=== PATIENT | female | born 1975 | race American Indian/Alaskan Native ===

== ENCOUNTER 2020-05-05 11:38 | Emergency (ER) | payer BC ==
--- NOTE | 2020-05-05 13:30 | XRay Report ---
CHEST 2 VIEWS INDICATION / CLINICAL INFORMATION: Cough, SOB. COMPARISON: Chest x-ray on 04/29/2020 FINDINGS: SUPPORT DEVICES: None. HEART / MEDIASTINUM: No significant abnormality. LUNGS / PLEURA: No significant pulmonary or pleural abnormality. No pneumothorax. ADDITIONAL FINDINGS: No significant additional findings. IMPRESSION: 1. No acute findings. Signer Name: Max Bueno MD Signed: 05/05/2020 1:26 PM Workstation Name: [id number]
--- NOTE | 2020-05-05 14:27 | Emergency Department Report ---
ED General Adult HPI - General Chief complaint: Upper Respiratory Infection Stated complaint: COUGH Time Seen by Provider: 05/05/20 12:57 Source: patient Mode of arrival: Ambulatory Limitations: No Limitations - History of Present Illness Initial comments: 44-year-old -[place] female patient presents with complaints of worsening cough and shortness of breath x 1 week. Patient was seen here with the same complaints 04/29/2020. At that time, patient was treated for bronchitis with prednisone, Z-Autumn, and an albuterol inhaler. Patient states compliant with medications, however states her symptoms have worsened despite these. She reports chest pain only with cough and states she is coughing up a yellow mucus. She denies any hemoptysis, leg pain/swelling, history of DVT/PE, hormone use, recent long travel/surgeries, or history of cancer. Patient reports at the start of her symptoms, she was tested for COVID and was negative. 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 She denies any prior medical history and states she is an occasional smoker. Patient also denies any fever/chills/sweats or body aches. - Related Data Previous Rx's Medication Instructions Recorded Last Taken Type Albuterol Sulfate [Proventil Hfa] 6.7 gm IH Q4HR #1 hfa.aer.ad 04/29/20 Unknown Rx Azithromycin [Zithromax Z-AUTUMN] 250 mg PO ONCE #1 pack 04/29/20 Unknown Rx Prednisone [predniSONE 5 mg (6-Day 5 mg PO .TAPER #1 tab.ds.pk 04/29/20 Unknown Rx Pack, 21 Tabs)] Benzonatate 200 mg PO TID PRN #30 capsule 05/05/20 Unknown Rx Guaifenesin/Pseudoephedrne HCl 1 tab PO BID 7 Days #14 tab 05/05/20 Unknown Rx [Mucinex D ER 1,200-120 mg Tab] Levocetirizine Dihydrochloride 5 mg PO QHS 7 Days #7 tablet 05/05/20 Unknown Rx [Xyzal] Promethazine/Phenyleph/Codeine 118 ml PO QID PRN #1 bottle 05/05/20 Unknown Rx [Noaxrbbmaojc-UC-Wcpsvdn Syrup] Allergies Allergy/AdvReac Type Severity Reaction Status Date / Time No Known Allergies Allergy Unverified 05/05/20 11:54 ED Review of Systems ROS: Stated complaint: COUGH Other details as noted in HPI Constitutional: denies: chills, diaphoresis, fever, malaise, weakness Eyes: denies: vision change ENT: denies: throat pain Respiratory: cough, orthopnea, shortness of breath. denies: SOB with exertion Cardiovascular: denies: chest pain, edema, syncope Gastrointestinal: denies: abdominal pain, nausea, vomiting, diarrhea Musculoskeletal: denies: back pain Skin: denies: rash, lesions, change in color Neurological: denies: headache Hematological/Lymphatic: denies: swollen glands ED Past Medical Hx - Past Medical History Previous Medical History?: No - Surgical History Past Surgical History?: Yes Additional Surgical History: fibroids, hysterectomy - Social History Smoking Status: Never Smoker Substance Use Type: Alcohol - Medications Home Medications: Home Medications Medication Instructions Recorded Confirmed Last Taken Type Albuterol Sulfate [Proventil Hfa] 6.7 gm IH Q4HR #1 hfa.aer.ad 04/29/20 Unknown Rx Azithromycin [Zithromax Z-AUTUMN] 250 mg PO ONCE #1 pack 04/29/20 Unknown Rx Prednisone [predniSONE 5 mg (6-Day 5 mg PO .TAPER #1 tab.ds.pk 04/29/20 Unknown Rx Pack, 21 Tabs)] Benzonatate 200 mg PO TID PRN #30 capsule 05/05/20 Unknown Rx Guaifenesin/Pseudoephedrne HCl 1 tab PO BID 7 Days #14 tab 05/05/20 Unknown Rx [Mucinex D ER 1,200-120 mg Tab] Levocetirizine Dihydrochloride 5 mg PO QHS 7 Days #7 tablet 05/05/20 Unknown Rx [Xyzal] Promethazine/Phenyleph/Codeine 118 ml PO QID PRN #1 bottle 05/05/20 Unknown Rx [Hxuybnrcvftc-FG-Mqddrqc Syrup] ED Physical Exam - General Limitations: No Limitations General appearance: alert, in no apparent distress, obese - Head Head exam: Present: atraumatic, normocephalic - Eye Eye exam: Present: normal appearance. Absent: scleral icterus - ENT ENT exam: Present: mucous membranes moist - Neck Neck exam: Present: normal inspection - Respiratory Respiratory exam: Present: normal lung sounds bilaterally. Absent: respiratory distress, chest wall tenderness - Cardiovascular Cardiovascular Exam: Present: regular rate, normal rhythm - GI/Abdominal GI/Abdominal exam: Present: soft, normal bowel sounds. Absent: distended, tenderness, guarding, rebound, rigid - Extremities Exam Extremities exam: Present: normal inspection, full ROM. Absent: calf tenderness (No swelling or pain noted bilaterally to legs) - Back Exam Back exam: Present: full ROM - Neurological Exam Neurological exam: Present: alert, oriented X3 - Psychiatric Psychiatric exam: Present: normal affect, normal mood - Skin Skin exam: Present: warm, dry, intact, normal color. Absent: rash, cyanosis, diaphoretic, ecchymosis ED Course Vital Signs 05/05/20 11:55 Temperature 98.4 F Pulse Rate 85 Respiratory 24 Rate Blood Pressure 187/93 [Right] O2 Sat by Pulse 100 Oximetry ED Medical Decision Making - Lab Data Result diagrams: 05/05/20 13:59 05/05/20 13:59 - Radiology Data Radiology results: report reviewed CHEST 2 VIEWS INDICATION / CLINICAL INFORMATION: Cough, SOB. COMPARISON: Chest x-ray on 04/29/2020 FINDINGS: SUPPORT DEVICES: None. HEART / MEDIASTINUM: No significant abnormality. LUNGS / PLEURA: No significant pulmonary or pleural abnormality. No pneumothorax. ADDITIONAL FINDINGS: No significant additional findings. IMPRESSION: 1. No acute findings. - Medical Decision Making 44-year-old -[place] female patient presents with complaints of worsening cough and shortness of breath x 1 week. Patient was seen here with the same complaints 04/29/2020. At that time, patient was treated for bronchitis with prednisone, Z-Autumn, and an albuterol inhaler. Patient states compliant with medications, however states her symptoms have worsened despite these. She reports chest pain only with cough and states she is coughing up a yellow mucus. She denies any hemoptysis, leg pain/swelling, history of DVT/PE, hormone use, recent long travel/surgeries, or history of cancer. Patient reports at the start of her symptoms, she was tested for COVID and was negative. 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 She denies any prior medical history and states she is an occasional smoker. Patient also denies any fever/chills/sweats or body aches. No abnormalities are noted on exam her lungs are clear to auscultation bilaterally. Chest x-ray is normal. PERC score = 0. Patient was ambulated for 90 seconds with pulse oximetry and remained at 100% on room air. Patient did complete azithromycin and prednisone. Will treat symptomatically for now for viral bronchitis with Mucinex, loratadine, and cough medication. Recommend follow-up with PCP and a possible second COVID test. Strict return precautions were discussed in detail with patient who verbalizes understanding. Critical care attestation.: If time is entered above; I have spent that time in minutes in the direct care of this critically ill patient, excluding procedure time. ED Disposition Clinical Impression: Viral bronchitis Disposition: DC- TO HOME OR SELFCARE Is pt being admited?: No Condition: Stable Instructions: Acute Bronchitis (ED) Prescriptions: Levocetirizine Dihydrochloride [Xyzal] 5 mg PO QHS 7 Days #7 tablet Benzonatate 200 mg PO TID PRN #30 capsule PRN Reason: Cough Guaifenesin/Pseudoephedrne HCl [Mucinex D ER 1,200-120 mg Tab] 1 tab PO BID 7 Days #14 tab Promethazine/Phenyleph/Codeine [Pfgnpvzvnjzb-UF-Bopnrco Syrup] 118 ml PO QID PRN #1 bottle PRN Reason: Cough Referrals: PRIMARY CARE, [Primary Care Provider] - 3-5 Days
[2020-05-05 14:43] LABS: Basophils % (Auto) 0.6 % (0.0-1.8); Eosinophils # (Auto) 0.1 K/mm3 (0.0-0.4); Eosinophils % (Auto) 1.1 % (0.0-4.3); Hematocrit 40.7 % (30.3-42.9); Hemoglobin 13.6 gm/dl (10.1-14.3); Lymphocytes # (Auto) 1.7 K/mm3 (1.2-5.4); Lymphocytes % (Auto) 26.5 % (13.4-35.0); Mean Corpuscular HGB Conc 33 % (30-34); Mean Corpuscular Volume 89 fl (79-97); Monocytes # (Auto) 0.5 K/mm3 (0.0-0.8); Monocytes % (Auto) 7.1 % (0.0-7.3); Platelet Count 188 K/mm3 (140-440); Red Cell Distribution Width 15.2 % (13.2-15.2)
[2020-05-05 15:04] LABS: Alanine Aminotransferase 11 units/L (7-56); Blood Urea Nitrogen 11 mg/dL (7-17); Calcium 8.8 mg/dL (8.4-10.2); Hemolysis Index 11
[2020-05-05 15:16] LABS: BUN/Creatinine Ratio 22
[2020-05-05 16:16] VITALS: BP 145/78
== END 2020-05-05 16:16 | disposition home or self-care (01) ==
LOC: ED 11:38
DX: J20.8 Acute bronchitis due to other specified organisms (principal); B34.9 Viral infection, unspecified; Z90.710 Acquired absence of both cervix and uterus; Z98.890 Other specified postprocedural states; Z79.2 Long term (current) use of antibiotics; Z79.899 Other long term (current) drug therapy
CPT/HCPCS: 36415; 71046; 80053; 83880; 85025

== ENCOUNTER 2021-08-17 05:58 | Emergency (ER) | payer BC ==
--- NOTE | 2021-08-17 06:40 | XRay Report ---
CHEST 2 VIEWS INDICATION / CLINICAL INFORMATION: congestion. COMPARISON: 2 views of the chest from 05/05/2020 FINDINGS: SUPPORT DEVICES: None. HEART / MEDIASTINUM: No significant abnormality. LUNGS / PLEURA: There are nonspecific bibasilar opacities. The upper lungs are clear. No significant pleural effusion. No pneumothorax. ADDITIONAL FINDINGS: No significant additional findings. IMPRESSION: Nonspecific bibasilar opacities may represent atelectasis or pneumonia. Please correlate with the cli nical findings. Signer Name: Zia Silva MD Signed: 08/17/2021 6:36 AM Workstation Name: [id number]
--- NOTE | 2021-08-17 08:02 | Emergency Department Report ---
- General Chief Complaint: Upper Respiratory Infection Stated Complaint: COUGH/RUNNY NOSE/FATIGUE Time Seen by Provider: 08/17/21 07:35 Source: patient Mode of arrival: Ambulatory Limitations: No Limitations - History of Present Illness Initial Comments: 45-year-old female presents to the ER today with complaints of URI/flulike symptoms. Patient states that she started to not feel well, 2 days ago then yesterday she started having productive cough, sinus pressure, rhinorrhea, nasal congestion, chills, subjective fever and intermittent diaphoresis. She denies any wheezing, chest pain or shortness of breath. She reports no GI or symptoms. 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 She denies any travel. She did get a Covid 19 Pfizer vaccine around May 2021. She has not gotten the flu vaccine. She denies tobacco use. She denies any illicit drug use or alcohol abuse. MD Complaint: cough, rhinorrhea, nasal congestion -: Gradual, days(s) (2) - Related Data Previous Rx's Medication Instructions Recorded Last Taken Type Azithromycin [Zithromax Z-AUTUMN] 0 mg PO DAILY #1 pack 08/17/21 Unknown Rx Benzonatate [Tessalon Perles] 100 mg PO Q8HR #30 capsule 08/17/21 Unknown Rx Cetirizine HCl [ZyrTEC 10mg cap] 10 mg PO DAILY #30 capsule 08/17/21 Unknown Rx Fluticasone [Flonase] 2 spray NS QDAY #1 bottle 08/17/21 Unknown Rx Allergies Allergy/AdvReac Type Severity Reaction Status Date / Time No Known Allergies Allergy Unverified 05/05/20 11:54 ED Review of Systems ROS: Stated complaint: COUGH/RUNNY NOSE/FATIGUE Other details as noted in HPI Comment: All other systems reviewed and negative Constitutional: chills. denies: fever ENT: congestion, other (rhinorrhea) Respiratory: cough. denies: shortness of breath, SOB with exertion, SOB at rest , wheezing Cardiovascular: denies: chest pain, palpitations, dyspnea on exertion, edema, syncope, paroxysmal nocturnal dyspnea Endocrine: no symptoms reported Gastrointestinal: denies: abdominal pain, nausea, vomiting, diarrhea, constipation, hematemesis, hematochezia Genitourinary: denies: urgency, dysuria, frequency, hematuria, discharge, abnormal menses, dyspareunia Musculoskeletal: denies: back pain, joint swelling, arthralgia, myalgia Skin: as per HPI. denies: rash, lesions, change in color, change in hair/nails, pruritus Neurological: headache. denies: weakness, numbness, paresthesias, confusion, abnormal gait, vertigo Psychiatric: denies: anxiety, depression, auditory hallucinations, visual hallucinations, homicidal thoughts, suicidal thoughts Hematological/Lymphatic: denies: easy bleeding, easy bruising, swollen glands ED Past Medical Hx - Past Medical History Previous Medical History?: No - Surgical History Past Surgical History?: No Additional Surgical History: fibroids, hysterectomy - Social History Smoking Status: Never Smoker Substance Use Type: Alcohol - Medications Home Medications: Home Medications Medication Instructions Recorded Confirmed Last Taken Type Azithromycin [Zithromax Z-AUTUMN] 0 mg PO DAILY #1 pack 08/17/21 Unknown Rx Benzonatate [Tessalon Perles] 100 mg PO Q8HR #30 capsule 08/17/21 Unknown Rx Cetirizine HCl [ZyrTEC 10mg cap] 10 mg PO DAILY #30 capsule 08/17/21 Unknown Rx Fluticasone [Flonase] 2 spray NS QDAY #1 bottle 08/17/21 Unknown Rx ED Physical Exam - General Limitations: No Limitations General appearance: alert, in no apparent distress - Head Head exam: Present: atraumatic, normocephalic, normal inspection - Eye Eye exam: Present: normal appearance, PERRL, EOMI Pupils: Present: normal accommodation - ENT ENT exam: Present: normal exam, mucous membranes moist, TM's normal bilaterally - Neck Neck exam: Present: normal inspection, full ROM. Absent: meningismus - Respiratory Respiratory exam: Present: normal lung sounds bilaterally. Absent: respiratory distress, wheezes, rales, rhonchi, stridor - Cardiovascular Cardiovascular Exam: Present: regular rate, normal rhythm, normal heart sounds - GI/Abdominal GI/Abdominal exam: Present: soft. Absent: distended, tenderness, guarding, rebound - Neurological Exam Neurological exam: Present: alert, oriented X3, CN II-XII intact, normal gait - Psychiatric Psychiatric exam: Present: normal affect, normal mood - Skin Skin exam: Present: intact ED Course Vital Signs 08/17/21 08/17/21 06:03 10:18 Temperature 98.5 F Pulse Rate 80 60 Respiratory 16 16 Rate Blood Pressure 149/96 154/98 [Left] O2 Sat by Pulse 100 98 Oximetry ED Medical Decision Making - Lab Data Result diagrams: 08/17/21 06:49 08/17/21 06:49 - Radiology Data Radiology results: report reviewed Patient: REINALDO MARAVILLA MR#: [id number] : 1975 Acct:[id number] Age/Sex: 45 / F ADM Date: 08/17/21 Loc: ED Attending Dr: Ordering Physician: MARIBELL JEFF MD Date of Service: 08/17/21 Procedure(s): XR chest routine 2V Accession Number(s): [id number] cc: ED MD TOMER Fluoro Time In Minutes: CHEST 2 VIEWS INDICATION / CLINICAL INFORMATION: congestion. COMPARISON: 2 views of the chest from 05/05/2020 FINDINGS: SUPPORT DEVICES: None. HEART / MEDIASTINUM: No significant abnormality. LUNGS / PLEURA: There are nonspecific bibasilar opacities. The upper lungs are clear. No significant pleural effusion. No pneumothorax. ADDITIONAL FINDINGS: No significant additional findings. IMPRESSION: Nonspecific bibasilar opacities may represent atelectasis or pneumonia. Please correlate with the clinical findings. Signer Name: Zia Silva MD Signed: 08/17/2021 6:36 AM Workstation Name: [id number] Transcribed By: CACHORRO Dictated By: Zia Silva MD Electronically Authenticated By: Zia Silva MD Signed Date/Time: 08/17/21635 DD/ 4 TD/TT: - Medical Decision Making 45-year-old female presents to the ER today with complaints of URI/flulike symptoms. Patient states that she started to not feel well, 2 days ago then yesterday she started having productive cough, sinus pressure, rhinorrhea, nasal congestion, chills, subjective fever and intermittent diaphoresis. She denies any wheezing, chest pain or shortness of breath. She reports no GI or symptoms. 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 She denies any travel. She did get a Covid 19 Pfizer vaccine around May 2021. She has not gotten the flu vaccine. She denies tobacco use. She denies any illicit drug use or alcohol abuse. Rapid flu negative. Labs unremarkable. Chest x-ray showed Nonspecific bibasilar opacities may represent atelectasis or pneumonia. Please correlate with the clinical findings. Patient currently is not toxic or ill-appearing. She is not in any significant pain or respiratory distress. Patient is neurologically intact. She has no meningeal signs on exam. Abdomen soft and nontender. Discussed all results with patient. Suspect that his symptoms are likely related to nonspecific viral illness. Changes on x-ray could also be related but will cover with antibiotics for possible community-acquired pneumonia. And the patient is COVID-19 vaccinated, but I still recommend that she get an outpatient COVID-19 test. Patient vital signs are stable. Patient expressed understanding for instructions and agree with plan. Patient stable at time of discharge. Critical care attestation.: If time is entered above; I have spent that time in minutes in the direct care of this critically ill patient, excluding procedure time. ED Disposition Clinical Impression: Viral URI, Pneumonia Disposition: HOME / SELF CARE / HOMELESS Is pt being admited?: No Does the pt Need Aspirin: No Condition: Stable Instructions: Viral Respiratory Infection, [id number], Community-Acquired Pneumonia, Adult, [id number], Bacterial Pneumonia (ED) Additional Instructions: Your rapid flu today was negative. Your chest x-ray showed signs concerning for possible mild pneumonia. This could still be viral related but she will be started on Zithromax to cover for any bacterial/community-acquired pneumonia. I know that you have been vaccinated against COVID-19, but I do recommend that you still get an outpatient COVID-19 test as this could still be a cause of your symptoms. Take the Tessalon Perles as prescribed for cough. Use the Flonase as prescribed and the Zyrtec as prescribed to help with your upper respiratory symptoms. I recommend that you take Tylenol and alternate with ibuprofen as needed to help with any pain. Drink lots of fluids. Take a multivitamin. Follow-up closely with your PCP. Return to the ER if your symptoms worsens. Prescriptions: Fluticasone [Flonase] 2 spray NS QDAY #1 bottle Benzonatate [Tessalon Perles] 100 mg PO Q8HR #30 capsule Azithromycin [Zithromax Z-AUTUMN] 0 mg PO DAILY #1 pack Cetirizine HCl [ZyrTEC 10mg cap] 10 mg PO DAILY #30 capsule Referrals: PRIMARY CARE, [Primary Care Provider] - 3-5 Days Forms: Work/School Release Form(ED) Time of Disposition: 10:10
[2021-08-17] MEDS ORDERED: ACETAMINOPHEN 500 MG TAB PO ONE (08:20)
[2021-08-17 09:16] LABS: Basophils % (Auto) 0.4 % (0.0-1.8); Eosinophils # (Auto) 0.1 K/mm3 (0.0-0.4); Eosinophils % (Auto) 1.9 % (0.0-4.3); Hematocrit 44.7 % (30.3-42.9); Hemoglobin 14.5 gm/dl (10.1-14.3); Lymphocytes # (Auto) 1.2 K/mm3 (1.2-5.4); Lymphocytes % (Auto) 24.4 % (13.4-35.0); Mean Corpuscular HGB Conc 32 % (30-34); Mean Corpuscular Volume 90 fl (79-97); Monocytes # (Auto) 0.3 K/mm3 (0.0-0.8); Monocytes % (Auto) 7.2 % (0.0-7.3); Platelet Count 200 K/mm3 (140-440); Red Blood Count 4.99 M/mm3 (3.65-5.03); Red Cell Distribution Width 13.9 % (13.2-15.2)
[2021-08-17 09:29] LABS: Alanine Aminotransferase 41 units/L (7-56); Albumin 3.8 g/dL (3.9-5); BUN/Creatinine Ratio 16; Blood Urea Nitrogen 8 mg/dL (7-17); Calcium 8.6 mg/dL (8.4-10.2); Hemolysis Index 11
[2021-08-17 10:22] VITALS: BP 154/98
== END 2021-08-17 10:22 | disposition home or self-care (01) ==
LOC: ED 05:58
DX: J06.9 Acute upper respiratory infection, unspecified (principal); B97.89 Other viral agents as the cause of diseases classified elsewhere; J18.9 Pneumonia, unspecified organism; Z72.89 Other problems related to lifestyle; Z79.899 Other long term (current) drug therapy
CPT/HCPCS: 36415; 71046; 80053; 85025; 87400; 99284